=== PATIENT | female | born 1965 | race Caucasian/White ===

== ENCOUNTER 2016-10-09 10:51 | Emergency (ER) | payer OTHER ==
[~2016-10-09] VITALS: Ht 162.5 cm; Wt 89.8 kg
[~2016-10-09 10:51] MED LIST: AUGMENTIN 875875 MG PO; COREG3.125 MG PO; ESTRACE0.5 MG PO; FLEXERIL10 MG PO; FLONASE 0.05% 121 EA NAS; HYCODAN/HYDROMET5 ML PO; HYDROCHLOROTH12.5 MG PO; K + POTASSIUM20 MEQ PO; MOTRIN600 MG PO; MOTRIN800 MG PO; NORVASC5 MG PO; PAXIL10 MG PO; POTASSIUM20 MEQ PO; QUINAPRIL5 MG PO; ROBAXIN500 MG PO; TESSALON PERLE200 MG PO; TRAMADOL HCL50 MG PO; ULTRAM50 MG PO; VICODIN ES 7501 TAB PO; VOLTAREN50 M1 PO; WELLBUTRIN SR150 MG PO; ZITHROMAX250 MG PO
[2016-10-09] MEDS ORDERED: QUINAPRIL20 MG PO (10:59)
[2016-10-09] MEDS ORDERED: VITAMIN B12 1541 TAB PO (11:00)
[2016-10-09] MEDS ORDERED: CYMBALTA60 MG PO (11:00)
[2016-10-09 13:20] VITALS: BP 154/92
== END 2016-10-09 13:19 | disposition home or self-care (01) ==
LOC: ED 10:51
DX: R51 Headache (principal); R42 Dizziness and giddiness; Z88.6 Allergy status to analgesic agent; Z79.899 Other long term (current) drug therapy

== ENCOUNTER 2017-02-19 18:10 | Emergency (ER) | payer OTHER ==
[~2017-02-19] VITALS: Wt 89.8 kg
[~2017-02-19 18:10] MED LIST changes: +CYMBALTA60 MG PO; +QUINAPRIL20 MG PO; +VITAMIN B12 1541 TAB PO
[2017-02-19 18:18] VITALS: BP 140/92
== END 2017-02-19 19:38 | disposition home or self-care (01) ==
LOC: ED 18:10
DX: T22.111A Burn of first degree of right forearm, initial encounter (principal); T22.112A Burn of first degree of left forearm, initial encounter; Z79.899 Other long term (current) drug therapy; X10.2XXA Contact with fats and cooking oils, initial encounter; Y93.G3 Activity, cooking and baking; Y92.89 Other specified places as the place of occurrence of the external cause; Y99.8 Other external cause status

== ENCOUNTER → 2017-04-24 | Outpatient (CLI) | payer OTHER | END | disposition home or self-care (01) | LOC: ORTHO 13:06 | DX: M17.12 Unilateral primary osteoarthritis, left knee (principal) ==

== ENCOUNTER → 2017-05-30 | Outpatient (CLI) | payer OTHER | END | disposition home or self-care (01) | LOC: ORTHO 00:25 | DX: M25.561 Pain in right knee (principal); R10.2 Pelvic and perineal pain; M17.11 Unilateral primary osteoarthritis, right knee ==

== ENCOUNTER → 2017-07-01 | Outpatient (CLI) | payer OTHER | END | disposition home or self-care (01) | LOC: MAMMO 17:18 | DX: Z12.31 Encounter for screening mammogram for malignant neoplasm of breast (principal) ==

== ENCOUNTER 2017-10-01 18:07 | Emergency (ER) | payer OTHER ==
[~2017-10-01] VITALS: Wt 89.8 kg
[~2017-10-01 18:07] MED LIST changes: -ANAPROX DS550 MG PO; -ROBAXIN500 M1 PO
[2017-10-01 18:10] VITALS: BP 135/49
[2017-10-01] MEDS ORDERED: ANAPROX DS550 MG PO (19:02)
[2017-10-01] MEDS ORDERED: ROBAXIN500 M1 PO (19:02)
== END 2017-10-01 19:47 | disposition home or self-care (01) ==
LOC: ED 18:07
DX: M25.512 Pain in left shoulder (principal); Z98.890 Other specified postprocedural states; Z90.710 Acquired absence of both cervix and uterus; Z79.899 Other long term (current) drug therapy; W01.198A Fall on same level from slipping, tripping and stumbling with subsequent striking against other object, initial encounter; Y93.89 Activity, other specified; Y92.89 Other specified places as the place of occurrence of the external cause; Y99.9 Unspecified external cause status

== ENCOUNTER → 2017-10-01 | Outpatient (CLI) | payer SELFPAY ==
[~2017-10-01] MED LIST changes: +ANAPROX DS550 MG PO; +ROBAXIN500 M1 PO
== END | disposition home or self-care (01) ==
LOC: ORTHO 01:24
DX: M79.661 Pain in right lower leg (principal); M79.89 Other specified soft tissue disorders

== ENCOUNTER → 2017-12-30 | Outpatient (CLI) | payer OTHER ==
[~2017-12-30] MED LIST changes: +ANAPROX DS550 MG PO; +ROBAXIN500 M1 PO
[2017-12-30 13:06] LABS: HEMATOCRIT 42.2 % (37.0-47.0); HEMOGLOBIN 13.8 g/dl (12.0-16.0); MEAN CELL VOLUME 83.1 fl (81.0-99.0); MEAN CORPUSCULAR HGB 27.2 pg (27.0-31.0); MEAN CORPUSCULAR HGB CONC 32.7 g/dl (33.0-37.0); MEAN PLATELET VOLUME 11.3 fl (9.6-12.3); RED BLOOD COUNT 5.08 10*6/uL (4.10-5.10); RED CELL DISTRI WIDTH 13.4 % (0-14.5); WHITE BLOOD COUNT 7.8 10*3/uL (4.8-10.8)
[2017-12-30 13:40] LABS: ALBUMIN 3.8 gm/dl (3.1-4.5); ALKALINE PHOSPHATASE 79 U/L (45-117); BUN 10 mg/dl (7-24); CHLORIDE 109 mmol/L (98-107); CHOLESTEROL 173 mg/dL (<200); CREATININE 0.69 mg/dL (0.55-1.02); HDL CHOLESTEROL 43 mg/dl (40-60); LDL CHOLESTEROL 86 mg/dL (9-159); POTASSIUM 3.6 mmol/L (3.5-5.1); SGOT/AST 19 IU/L (3-35); SGPT/ALT 37 U/L (12-78); SODIUM 142 mmol/L (136-145); TOTAL PROTEIN 7.1 gm/dL (6.4-8.2); TRIGLYCERIDES 220 mg/dl (<150); VLDL CHOLESTEROL 44 mg/dL (6-40)
== END | disposition home or self-care (01) ==
LOC: LAB 12:46
PROVIDERS: Family Medicine
DX: E78.00 Pure hypercholesterolemia, unspecified (principal); I10 Essential (primary) hypertension; M19.91 Primary osteoarthritis, unspecified site

== ENCOUNTER 2018-06-14 13:13 | Inpatient (IN) | payer OTHER ==
[~2018-06-14] VITALS: Ht 165.1 cm; Wt 105.2 kg
--- NOTE | ~2018-06-14 | WRIGHTHP ---
[place], [place] PATIENT HISTORY AND PHYSICAL EXAM NAME: ROBERTH LANDRY [facility] #: [id number] UNIT #: [id number] ROOM: 425 DOCTOR: MAGGIE PEREZ MD BIRTHDATE: [birth year] DOS: HISTORY OF PRESENT ILLNESS: This patient is not known to me, 52 years old who presents with dizziness and lightheadedness to the Emergency Room. The patient was evaluated in the ER and workup so far was negative, was admitted with continued dizziness, which was uncontrollable with medications. The patient denies having any chest pains or palpitations, does not have any fever or chills, does have some minimal headaches, again dizzy and lightheaded when she gets up. PAST MEDICAL HISTORY: Significant for: 1. Major depression, mild, recurrent. 2. Benign hypertension. 3. Generalized anxiety disorder. 4. History of a syncope for which she was admitted in 2013. MEDICATIONS: Wellbutrin 150 b.i.d., Coreg 3.125 b.i.d., duloxetine 60 daily, naproxen 500 b.i.d., quinapril 40 daily. SOCIAL HISTORY: Nonsmoker. Does not use any alcohol. 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 She is . She has three children. FAMILY HISTORY: Mother at very young age with cerebral hemorrhage. Father is pretty healthy. PHYSICAL EXAMINATION: VITAL SIGNS: Graphic trend shows a pressure of 146/90, pulse of 66, respirations 18, temperature 98.2. LUNGS: Diminished breath sounds, clear. HEART: Regular. ABDOMEN: Obese, soft. EXTREMITIES: Without any edema. ASSESSMENT AND PLAN: 1. No sinus tenderness noted. Dizziness, lightheadedness. We will check carotid Doppler, MRI of the brain if pending. She may have a viral vestibular neuronitis, which is causing the dizziness. Antivert has been ordered. We will give her a low dose of steroids. 2. Benign hypertension, controlled. Ruled out for myocardial infarction. 3. Anxiety with history of depression, on Wellbutrin, which is to be continued. [place], [place] PATIENT HISTORY AND PHYSICAL EXAM NAME: ROBERTH LANDRY [facility] #: [id number] UNIT #: [id number] ROOM: 425 DOCTOR: MAGGIE PEREZ MD BIRTHDATE: [birth year] MAGGIE PEREZ MD CM:RENYS:PATIENT HISTORY AND PHYSICAL EXAMINATION 1 3 MAGGIE PEREZ MD 06/15/18 0925 interface
--- NOTE | ~2018-06-14 | PR ---
[place], [place] PROGRESS NOTE NAME: ROBERTH LANDRY [facility] #: [id number] UNIT #: [id number] ROOM: 425 DOCTOR: MAGGIE PEREZ MD BIRTHDATE: [birth year] DOS: 06/16/2018 SUBJECTIVE: The patient still has some headaches, occasional dizziness. OBJECTIVE: VITAL SIGNS: Graphic trend shows a pressure 145/81, pulse of 106, respirations 18, temperature 98.6. LUNGS: Diminished breath sounds, clear. HEART: Regular. ABDOMEN: Obese, soft. EXTREMITIES: Without any edema. Ultrasound of the carotid shows no stenosis. DIAGNOSTIC DATA: MRI of the brain shows chronic sinusitis of the maxillary and ethmoid. A small focus of increased T12 density in the right frontal region without any evidence of aneurysm. ASSESSMENT AND PLAN: 1. The patient who presents with dizziness, possibly vestibular neuronitis as well as acute pansinusitis. The patient is placed on steroids and antibiotics. 2. PT will be evaluating her and if she does okay, the plan is to discharge her to home. 3. Benign hypertension, controlled. Echocardiogram was essentially normal with mild left ventricular hypertrophy. The plan is to discharge the patient today to home. MAGGIE PEREZ MD CM:SAEID 0 0 MAGGIE PEREZ MD 06/16/18911 interface
--- NOTE | ~2018-06-14 | EKG ---
[place], [place] ELECTROCARDIOGRAM REPORT NAME: ROBERTH LANDRY UNIT #: [id number] ROOM: 425 DOCTOR: YAMILEX DRAFT REPORT BIRTHDATE: [birth year] [facility] Test Date: 2018-06-14 Test Time: 13:43:49 Pat Name: ROBERTH LANDRY Department: Room: 425 Gender: F Seo Consultant: Nikia Bee : 1965 Requested By: CHRIS BAIN Order Number: [id number] Reading MD: Leo Blanton MD Measurements Intervals [place] Rate: 71 P: 21 MD: 133 QRS: -6 QRSD: 85 T: 14 QT: 401 QTc: 436 Interpretive Statements Sinus rhythm Electronically Signed On 06-15-2018 14:35:19 PST by Leo Blanton MD CM:EKGRPT:ELECTROCARDIOGRAM REPORT [id number] CHRIS PELLETIER DRAFT REPORT CHRIS BAIN DO
--- NOTE | ~2018-06-14 | DS ---
[place], [place] DISCHARGE SUMMARY NAME: ROBERTH LANDRY [facility] #: [id number] UNIT #: [id number] ROOM: 425 DOCTOR: MAGGIE PEREZ MD BIRTHDATE: [birth year] DOS: 06/16/2018 DIAGNOSES: 1. Dizziness from pansinusitis. 2. Benign hypertension with mild concentric left ventricular hypertrophy. 3. Generalized anxiety disorder. 4. Major depression, mild, recurrent. 5. History of syncope workup in 2013. HOSPITAL COURSE: The patient is 52 years old, presents with dizziness and lightheadedness. Please refer to H and P for details. She has some facial redness noticed. Examination was fairly unremarkable. There were no neurological deficits. The patient after admission underwent an MRI of the brain and carotid Doppler. Carotid Doppler was negative; MRI of the brain showed pansinusitis. Also noted was the increased small focus of increased signal in the white matter of the right frontal region, which could be an area of small vessel disease. The patient will have a PT evaluation this morning, if she passes that, the plan is to discharge her to home. Pressures have been fairly controlled, but she appears quite anxious. Echocardiogram showed normal LV function, but with mild concentric LVH. DISCHARGE MEDICATIONS: Augmentin 875 twice a day for 7 days, prednisone tapering dose, Flonase 2 sprays each nostril daily, Coreg 3.125 b.i.d., Wellbutrin 150 b.i.d., duloxetine 60 daily, quinapril 40 daily, and naproxen 500 b.i.d. MAGGIE PEREZ MD CM:DISCHARG 6 8 MAGGIE PEREZ MD 06/16/1830 interface
[2018-06-14 13:14] VITALS: BP 174/91
[2018-06-14 13:47] LABS: BASO # 0.1 10*3/uL (0.0-0.1); BASO % 0.8 % (0.0-1.0); EOS # 0.2 10*3/uL (0.0-0.4); EOS % 2.7 % (1.0-4.0); HEMATOCRIT 41.8 % (37.0-47.0); HEMOGLOBIN 13.8 g/dl (12.0-16.0); LYMPH # 2.5 10*3/uL (1.3-4.4); MEAN CELL VOLUME 83.4 fl (81.0-99.0); MEAN CORPUSCULAR HGB 27.5 pg (27.0-31.0); MEAN PLATELET VOLUME 11.3 fl (9.6-12.3); MONO # 0.5 10*3/uL (0.1-1.0); MONO % 6.2 % (3.0-9.0); NEUT # 4.5 10*3/uL (2.3-7.9); NEUT % 57.9 % (47.0-73.0); PLATELET COUNT AUTOMATED 244 10*3/uL (130-400); RED BLOOD COUNT 5.01 10*6/uL (4.10-5.10); RED CELL DISTRI WIDTH 13.6 % (0-14.5); WHITE BLOOD COUNT 7.8 10*3/uL (4.8-10.8)
[2018-06-14 14:01] LABS: ALBUMIN 3.8 gm/dl (3.1-4.5); ALKALINE PHOSPHATASE 78 U/L (45-117); BUN 14 mg/dl (7-24); CHLORIDE 109 mmol/L (98-107); CREATININE 0.78 mg/dL (0.55-1.02); LIPASE 184 U/L (73-393); POTASSIUM 3.8 mmol/L (3.5-5.1); SGOT/AST 17 IU/L (3-35); SGPT/ALT 34 U/L (12-78); SODIUM 140 mmol/L (136-145)
[2018-06-14 14:06] LABS: ACT PARTIAL THROMBO TIME 27.5 SECONDS (20.8-31.5); INTERNATIONAL NORM RATIO 0.9 (2.0-3.5); TROPONIN I < 0.015 ng/ml (<0.045)
[2018-06-14 14:39] VITALS: BP 162/98
[2018-06-14 14:57] LABS: BILIRUBIN NEGATIVE (NEGATIVE); BLOOD NEGATIVE (NEGATIVE); CLARITY CLEAR (CLEAR); COLOR YELLOW (YELLOW); GLUCOSE NEGATIVE (NEGATIVE); KETONE NEGATIVE (NEGATIVE); LEUKO ESTERASE NEGATIVE (NEGATIVE); NITRITE NEGATIVE (NEGATIVE); PH 6.5 (5.0-9.0); UROBILINOGEN 0.2 E.U./dl (0.2-1.0)
[2018-06-14 15:06] LABS: RBC 0-2 rbc/hpf (0-2); WBC 0-2 wbc/hpf (0-5)
[2018-06-14 16:42] VITALS: BP 147/90
--- NOTE | 2018-06-14 16:43 | NUR ---
PT C/O HEADACHE, DR. BAIN NOTIFIED.
--- NOTE | 2018-06-14 17:20 | NUR ---
TORADOL GIVEN BY TIMOTHY LORENZO
[2018-06-14 18:08] VITALS: BP 121/81
[2018-06-14 18:40] VITALS: BP 125/85
[2018-06-14] MEDS ORDERED: NAPROXEN D/R500 MG PO (18:40)
[2018-06-14] MEDS ORDERED: QUINAPRIL40 MG PO (18:40)
--- NOTE | 2018-06-14 18:53 | NUR ---
CCA 52, admitted to , under the services of MAGGIE Cerda MD with a diagnosis of HEADACHE, NEAR SYNCOPE. Chief complaint is C/O DIZZINESS, HEADACHE SINCE FRIDAY NIGHT. Patient arrived via ambulatory from ER. Monitor applied. Initial assessment completed. Vital signs taken and recorded. MAGGIE CERDA MD notified of admission to the unit. Orders received. See assessment for past medical history, medications and allergies. Patient and/or family oriented to unit. [address] visitation policy reviewed. Clothing/patient valuable form completed. GRECIA MCKNIGHT.
--- NOTE | 2018-06-14 18:57 | NUR ---
Shift chart check completed.24 HR chart check completed.
[2018-06-14 20:00] VITALS: BP 126/71
--- NOTE | 2018-06-14 22:46 | NUR ---
ON ASSESSMENT NO VOICED COMPLAINTS. SHE UNDERSTANDS THAT SHE WILL HAVE ULTRASOUND OF CAROTIDS AND MRI OF HER HEAD TOMORROW. MRI SCREENING FORM COMPLETED AND FAXED TO THE DEPARTMENT. NO DYSRHYTHMIAS. BED IN LOW POSITION WITH WHEELS LOCKED. BATHROOM DOOR OPENED WITH SHOWER LIGHT ON TO PROVIDE SOME LIGHT TO PT. CALL LIGHT IN REACH. SEE ALL APPROPRIATE INTERVENTIONS.
[2018-06-15] VITALS: BP 146/90
--- NOTE | 2018-06-15 00:42 | NUR ---
EYES CLOSED AT PRESENT. NO DYSRHYTHMIAS. NO RESPIRATORY DISTRESS.
[2018-06-15 07:00] LABS: CHOLESTEROL 167 mg/dL (<200); TRIGLYCERIDES 178 mg/dl (<150); VLDL CHOLESTEROL 36 mg/dL (6-40)
[2018-06-15 07:02] LABS: HDL CHOLESTEROL 41 mg/dl (40-60); LDL CHOLESTEROL 90 mg/dL (9-159)
--- NOTE | 2018-06-15 09:00 | NUR ---
Theatre Manager in to talk to patient. Patient states lives at home with her . There are 13 steps in the home. Physician: Dr. Nato Yee [facility]: [facility] Home health services: none Patient's level of ADLs: INDEPENDENT Patient has working utilities: yes DME: none Follow-up physician's appointment after d/c: she prefers to make her own follow up appt after discharge Does patient want to access PORTAL?: no Discharge plan discussed with patient. She lives at home with her . She is independent in her ADLs and ambulation. Discussed home health care services and she denies any home needs at this time. When medically stable she will be discharged to home. KAYCEE VALENCIA
[2018-06-15 12:00] VITALS: BP 131/67
--- NOTE | 2018-06-15 13:44 | NUR ---
MEDICATED WITH NORCO AT 1235 FOR C/O LEE THAT WAS RATED A 6 AND ACHING
[2018-06-15 16:00] VITALS: BP 144/76
[2018-06-15 20:00] VITALS: BP 116/63
--- NOTE | 2018-06-15 20:12 | NUR ---
24HR CHART CHECK COMPLETED.
[2018-06-16] VITALS: BP 145/81
--- NOTE | 2018-06-16 06:09 | NUR ---
PATIENT RESTING IN BED WITH NO S/S OF DISTRESS. NO NEEDS MADE. BED IN LOWEST POSITION, CALL LIGHT IN REACH
[2018-06-16 08:00] VITALS: BP 130/67
[2018-06-16] MEDS ORDERED: AUGMENTIN 875875 MG PO (08:13)
[2018-06-16] MEDS ORDERED: PREDNISONE5 MG PO (08:15)
[2018-06-16] MEDS ORDERED: FLONASE ALLERG9.9 ML NAS (08:15)
--- NOTE | 2018-06-16 08:25 | NUR ---
pt complain of headache and sinus pain, norco given. see mar.
--- NOTE | 2018-06-16 10:29 | NUR ---
PT TO BE D/C HOME TODAY. PT WILL GET [facility] OF FOR TRANSPORTATION. IV REMOVED LEFT ARM, DRESSING APPLIED
--- NOTE | 2018-06-16 11:43 | NUR ---
Discharge instructions reviewed with patient. Patient receptive and verbalizes understanding. Follow-up care understood. Written instructions given to patient. pt aware to brain picker new rx at pharmacy, work slip given. pt has no questions on discharge, waiting for to brain picker for discharge RYLEE FARFAN
--- NOTE | 2018-06-16 12:11 | NUR ---
DISCHARGED BY WHEELCHAIR
== END 2018-06-16 12:11 | disposition home or self-care (01) | DRG 153 ==
LOC: ED 13:13 → 4E 17:33 → EDHOLD 17:33 → 4E 18:10
PROVIDERS: Emergency Medicine; ADMIT Internal Medicine
DX: J01.40 Acute pansinusitis, unspecified (principal); F33.9 Major depressive disorder, recurrent, unspecified; F41.1 Generalized anxiety disorder; I10 Essential (primary) hypertension; H93.3X9 Disorders of unspecified acoustic nerve; R51 Headache; Z72.89 Other problems related to lifestyle; Z82.49 Family history of ischemic heart disease and other diseases of the circulatory system; I51.7 Cardiomegaly

== ENCOUNTER → 2018-08-26 | Outpatient (CLI) | payer OTHER ==
[~2018-08-26] MED LIST changes: +FLONASE ALLERG9.9 ML NAS; +NAPROXEN D/R500 MG PO; +PREDNISONE5 MG PO; +QUINAPRIL40 MG PO
== END | disposition home or self-care (01) ==
LOC: ORTHO 01:36
DX: M17.11 Unilateral primary osteoarthritis, right knee (principal); M25.461 Effusion, right knee; M21.161 Varus deformity, not elsewhere classified, right knee

== ENCOUNTER → 2018-10-20 | Outpatient (CLI) | payer OTHER | END | disposition home or self-care (01) | LOC: MAMMO 16:50 | DX: Z12.31 Encounter for screening mammogram for malignant neoplasm of breast (principal) ==

== ENCOUNTER → 2019-02-15 | Outpatient (CLI) | payer OTHER ==
[~2019-02-15] MED LIST changes: +CEPHALEXIN500 M1 PO
[2019-02-15 15:25] LABS: BASO % 0.5 % (0.0-1.0); EOS # 0.1 10*3/uL (0.0-0.4); EOS % 0.9 % (1.0-4.0); HEMATOCRIT 40.8 % (37.0-47.0); HEMOGLOBIN 13.2 g/dl (12.0-16.0); LYMPH # 2.2 10*3/uL (1.3-4.4); LYMPH % 25.9 % (27.0-41.0); MEAN CELL VOLUME 86.3 fl (81.0-99.0); MEAN CORPUSCULAR HGB 27.9 pg (27.0-31.0); MEAN CORPUSCULAR HGB CONC 32.4 g/dl (33.0-37.0); MEAN PLATELET VOLUME 11.6 fl (9.6-12.3); MONO # 0.5 10*3/uL (0.1-1.0); MONO % 5.4 % (3.0-9.0); NEUT # 5.7 10*3/uL (2.3-7.9); NEUT % 66.9 % (47.0-73.0); PLATELET COUNT AUTOMATED 244 10*3/uL (130-400); RED BLOOD COUNT 4.73 10*6/uL (4.10-5.10); RED CELL DISTRI WIDTH 14.1 % (0-14.5); WHITE BLOOD COUNT 8.5 10*3/uL (4.8-10.8)
[2019-02-15 15:54] LABS: ALBUMIN 3.8 gm/dl (3.1-4.5); BUN 15 mg/dl (7-24); CHLORIDE 105 mmol/L (98-107); CHOLESTEROL 180 mg/dL (<200); CREATININE 0.84 mg/dL (0.55-1.02); POTASSIUM 3.3 mmol/L (3.5-5.1); SGOT/AST 19 IU/L (3-35); SGPT/ALT 34 U/L (12-78); SODIUM 140 mmol/L (136-145); TOTAL PROTEIN 7.1 gm/dL (6.4-8.2); TRIGLYCERIDES 199 mg/dl (<150); VLDL CHOLESTEROL 40 mg/dL (6-40)
[2019-02-15 15:55] LABS: ALKALINE PHOSPHATASE 83 U/L (45-117); HDL CHOLESTEROL 48 mg/dl (40-60); LDL CHOLESTEROL 92 mg/dL (9-159)
[2019-02-15 16:13] LABS: VITAMIN D, 25-HYDROXY 18.2 ng/mL (30-100)
== END | disposition home or self-care (01) ==
LOC: LAB 14:41
PROVIDERS: Family Medicine
DX: E55.9 Vitamin D deficiency, unspecified (principal); M79.10 Myalgia, unspecified site; E74.00 Glycogen storage disease, unspecified; F41.1 Generalized anxiety disorder; I10 Essential (primary) hypertension

== ENCOUNTER → 2019-03-05 | Outpatient (CLI) | payer OTHER | END | disposition home or self-care (01) | LOC: LAB 13:51 | DX: E04.9 Nontoxic goiter, unspecified (principal); E66.9 Obesity, unspecified; R53.83 Other fatigue ==

== ENCOUNTER 2019-03-16 16:59 | Emergency (ER) | payer SELFPAY ==
[~2019-03-16] VITALS: Ht 162.5 cm; Wt 89.8 kg
[~2019-03-16 16:59] MED LIST changes: -CEPHALEXIN500 M1 PO
[2019-03-16 17:00] VITALS: BP 116/89
[2019-03-16 17:57] LABS: INTERNATIONAL NORM RATIO 0.9 (2.0-3.5)
[2019-03-16 18:05] LABS: BASO % 0.3 % (0.0-1.0); EOS # 0.1 10*3/uL (0.0-0.4); EOS % 1.5 % (1.0-4.0); HEMATOCRIT 39.5 % (37.0-47.0); HEMOGLOBIN 12.8 g/dl (12.0-16.0); LYMPH # 1.4 10*3/uL (1.3-4.4); LYMPH % 23.9 % (27.0-41.0); MEAN CELL VOLUME 86.8 fl (81.0-99.0); MEAN CORPUSCULAR HGB 28.1 pg (27.0-31.0); MEAN CORPUSCULAR HGB CONC 32.4 g/dl (33.0-37.0); MEAN PLATELET VOLUME 11.7 fl (9.6-12.3); MONO # 0.5 10*3/uL (0.1-1.0); MONO % 8.3 % (3.0-9.0); NEUT # 3.8 10*3/uL (2.3-7.9); NEUT % 65.7 % (47.0-73.0); PLATELET COUNT AUTOMATED 206 10*3/uL (130-400); RED BLOOD COUNT 4.55 10*6/uL (4.10-5.10); RED CELL DISTRI WIDTH 13.8 % (0-14.5); WHITE BLOOD COUNT 5.8 10*3/uL (4.8-10.8)
[2019-03-16 18:11] LABS: ALBUMIN 3.7 gm/dl (3.1-4.5); ALKALINE PHOSPHATASE 76 U/L (45-117); BUN 15 mg/dl (7-24); CHLORIDE 106 mmol/L (98-107); CREATININE 0.89 mg/dL (0.55-1.02); POTASSIUM 3.2 mmol/L (3.5-5.1); SGOT/AST 15 IU/L (3-35); SGPT/ALT 34 U/L (12-78); SODIUM 139 mmol/L (136-145); TOTAL PROTEIN 6.9 gm/dL (6.4-8.2)
[2019-03-16] MEDS ORDERED: CEPHALEXIN500 M1 PO (18:32)
== END 2019-03-16 18:57 | disposition home or self-care (01) ==
LOC: ED 16:59
PROVIDERS: Nurse Practitioner Family
DX: L03.116 Cellulitis of left lower limb (principal); L03.115 Cellulitis of right lower limb; G43.909 Migraine, unspecified, not intractable, without status migrainosus; Z79.899 Other long term (current) drug therapy

== ENCOUNTER → 2019-11-15 | Outpatient (CLI) | payer OTHER ==
[~2019-11-15] MED LIST changes: +CEPHALEXIN500 M1 PO
[2019-11-15 17:54] LABS: HEMATOCRIT 43.2 % (37.0-47.0); MEAN CELL VOLUME 86.1 fl (81.0-99.0); MEAN CORPUSCULAR HGB 27.5 pg (27.0-31.0); MEAN CORPUSCULAR HGB CONC 31.9 g/dl (33.0-37.0); MEAN PLATELET VOLUME 11.6 fl (9.6-12.3); RED BLOOD COUNT 5.02 10*6/uL (4.10-5.10); RED CELL DISTRI WIDTH 14.7 % (0-14.5)
[2019-11-15 18:14] LABS: ALBUMIN 3.8 gm/dl (3.1-4.5); ALKALINE PHOSPHATASE 89 U/L (45-117); BUN 16 mg/dl (7-24); CHLORIDE 109 mmol/L (98-107); CHOLESTEROL 169 mg/dL (<200); CREATININE 0.98 mg/dL (0.55-1.02); HDL CHOLESTEROL 42 mg/dl (40-60); LDL CHOLESTEROL 82 mg/dL (9-159); POTASSIUM 3.4 mmol/L (3.5-5.1); SGOT/AST 22 IU/L (3-35); SGPT/ALT 36 U/L (12-78); SODIUM 141 mmol/L (136-145); TOTAL PROTEIN 7.5 gm/dL (6.4-8.2); TRIGLYCERIDES 227 mg/dl (<150); VLDL CHOLESTEROL 45 mg/dL (6-40)
== END | disposition home or self-care (01) ==
LOC: LAB 17:09
PROVIDERS: Family Medicine
DX: I10 Essential (primary) hypertension (principal); E55.9 Vitamin D deficiency, unspecified; R60.0 Localized edema; F41.1 Generalized anxiety disorder; E74.00 Glycogen storage disease, unspecified

== ENCOUNTER → 2019-12-30 | Outpatient (CLI) | payer OTHER ==
[2019-12-30 15:50] LABS: CHLORIDE 109 mmol/L (98-107); POTASSIUM 3.4 mmol/L (3.5-5.1); SODIUM 141 mmol/L (136-145)
[2019-12-30 15:56] LABS: ALBUMIN 3.5 gm/dl (3.1-4.5); ALKALINE PHOSPHATASE 76 U/L (45-117); BUN 11 mg/dl (7-24); CREATININE 0.73 mg/dL (0.55-1.02); SGOT/AST 20 IU/L (3-35); SGPT/ALT 32 U/L (12-78); TOTAL PROTEIN 7.1 gm/dL (6.4-8.2)
== END | disposition home or self-care (01) ==
LOC: LAB 14:36
PROVIDERS: Family Medicine
DX: E87.5 Hyperkalemia (principal)

== ENCOUNTER → 2020-02-22 | Outpatient (CLI) | payer OTHER | END | disposition home or self-care (01) | LOC: COVID19 00:24 | PROVIDERS: ATTEND Family Medicine | DX: Z20.828 Contact with and (suspected) exposure to other viral communicable diseases (principal) ==

== ENCOUNTER → 2020-07-18 | Outpatient (CLI) | payer OTHER ==
[2020-07-18 10:45] LABS: HEMATOCRIT 44.1 % (37.0-47.0); MEAN CELL VOLUME 85.5 fl (81.0-99.0); MEAN CORPUSCULAR HGB 25.8 pg (27.0-31.0); MEAN CORPUSCULAR HGB CONC 30.2 g/dl (33.0-37.0); MEAN PLATELET VOLUME 11.3 fl (9.6-12.3); RED BLOOD COUNT 5.16 10*6/uL (4.10-5.10); RED CELL DISTRI WIDTH 14.1 % (0-14.5)
[2020-07-18 11:16] LABS: ALBUMIN 3.6 gm/dl (3.1-4.5); ALKALINE PHOSPHATASE 96 U/L (45-117); BUN 15 mg/dl (7-24); CHLORIDE 110 mmol/L (98-107); CHOLESTEROL 190 mg/dL (<200); CREATININE 0.81 mg/dL (0.55-1.02); HDL CHOLESTEROL 44 mg/dl (40-60); LDL CHOLESTEROL 110 mg/dL (9-159); POTASSIUM 4.2 mmol/L (3.5-5.1); SGOT/AST 16 IU/L (3-35); SGPT/ALT 42 U/L (12-78); SODIUM 142 mmol/L (136-145); TOTAL PROTEIN 7.1 gm/dL (6.4-8.2); TRIGLYCERIDES 178 mg/dl (<150); VLDL CHOLESTEROL 36 mg/dL (6-40)
[2020-07-18 11:58] LABS: VITAMIN D, 25-HYDROXY 23.5 ng/mL (30-100)
== END | disposition home or self-care (01) ==
LOC: LAB 10:24
PROVIDERS: ATTEND Family Medicine
DX: I10 Essential (primary) hypertension (principal); E55.9 Vitamin D deficiency, unspecified; R53.83 Other fatigue; E78.00 Pure hypercholesterolemia, unspecified; F41.1 Generalized anxiety disorder

== ENCOUNTER → 2020-08-22 | Outpatient (CLI) | payer OTHER ==
[2020-08-22 16:56] LABS: FREE T4 1.01 ng/dl (0.76-1.46)
[2020-08-22 17:00] LABS: THYROID STIM HORMONE (HS) 1.26 uIU/ml (0.358-4.75)
== END | disposition home or self-care (01) ==
LOC: MAMMO 08-17 11:00 → LAB 15:58 → MAMMO 16:30
PROVIDERS: ATTEND Family Medicine
DX: Z12.31 Encounter for screening mammogram for malignant neoplasm of breast (principal); R53.83 Other fatigue; R63.5 Abnormal weight gain

== ENCOUNTER → 2020-08-31 | Outpatient (CLI) | payer OTHER ==
[2020-08-31 10:40] LABS: BASO # 0.1 10*3/uL (0.0-0.1); BASO % 0.5 % (0.0-1.0); EOS # 0.3 10*3/uL (0.0-0.4); EOS % 3.4 % (1.0-4.0); HEMATOCRIT 43.7 % (37.0-47.0); LYMPH # 2.2 10*3/uL (1.3-4.4); MEAN CELL VOLUME 84.9 fl (81.0-99.0); MEAN CORPUSCULAR HGB 26.4 pg (27.0-31.0); MEAN CORPUSCULAR HGB CONC 31.1 g/dl (33.0-37.0); MONO # 0.5 10*3/uL (0.1-1.0); NEUT # 6.1 10*3/uL (2.3-7.9); NEUT % 66.6 % (47.0-73.0); PLATELET COUNT AUTOMATED 270 10*3/uL (130-400); RED BLOOD COUNT 5.15 10*6/uL (4.10-5.10); RED CELL DISTRI WIDTH 14.6 % (0-14.5); WHITE BLOOD COUNT 9.2 10*3/uL (4.8-10.8)
[2020-08-31 10:51] LABS: ACT PARTIAL THROMBO TIME 28.7 SECONDS (20.0-32.1); INTERNATIONAL NORM RATIO 0.9 (2.0-3.5)
[2020-08-31 11:02] LABS: BILIRUBIN Negative (Negative); BLOOD Negative (Negative); CLARITY Clear (Clear); COLOR Yellow (Yellow); GLUCOSE Negative (Negative); KETONE Negative (Negative); LEUKO ESTERASE 1+ (Negative); NITRITE Positive (Negative); PH 5.5 (4.5-8.0); SPECIFIC GRAVITY 1.015 (1.001-1.030); UROBILINOGEN 0.2 E.U./dl (0.0-1.0)
[2020-08-31 11:16] LABS: ALBUMIN 3.6 gm/dl (3.1-4.5); ALKALINE PHOSPHATASE 96 U/L (45-117); BUN 12 mg/dl (7-24); CHLORIDE 108 mmol/L (98-107); CREATININE 0.85 mg/dL (0.55-1.02); POTASSIUM 3.6 mmol/L (3.5-5.1); SGOT/AST 20 IU/L (3-35); SGPT/ALT 48 U/L (12-78); SODIUM 141 mmol/L (136-145); TOTAL PROTEIN 7.6 gm/dL (6.4-8.2)
[2020-08-31 11:52] LABS: BACTERIA 4+; WBC 21-30 wbc/hpf (0-5)
== END | disposition home or self-care (01) ==
LOC: LAB 09:49
PROVIDERS: ATTEND Orthopaedic Surgery
DX: Z01.818 Encounter for other preprocedural examination (principal); R53.83 Other fatigue; R06.02 Shortness of breath; I10 Essential (primary) hypertension; M19.90 Unspecified osteoarthritis, unspecified site; M79.7 Fibromyalgia; Z79.899 Other long term (current) drug therapy; Z13.220 Encounter for screening for lipoid disorders

== ENCOUNTER → 2020-09-06 | Outpatient (CLI) | payer OTHER | END | disposition home or self-care (01) | LOC: MAMMO 13:17 | PROVIDERS: ATTEND Family Medicine | DX: R92.8 Other abnormal and inconclusive findings on diagnostic imaging of breast (principal) ==

== ENCOUNTER → 2020-10-27 | Outpatient (CLI) | payer OTHER | END | disposition home or self-care (01) | LOC: US 11:14 | PROVIDERS: ATTEND Orthopaedic Surgery | DX: R22.41 Localized swelling, mass and lump, right lower limb (principal) ==

== ENCOUNTER → 2020-12-27 | Outpatient (CLI) | payer OTHER ==
[2020-12-28 16:08] LABS: MUMPS ANTIBODIES, IGG 59.3 AU/mL (Immune >10.9); RUBEOLA AB IGG <13.5 AU/mL (Immune >16.4); VARICELLA-ZOSTER IGG 255 index (Immune >165)
== END | disposition home or self-care (01) ==
LOC: LAB 16:22
PROVIDERS: ATTEND Family Medicine
DX: Z02.1 Encounter for pre-employment examination (principal)

== ENCOUNTER → 2021-02-26 | Outpatient (CLI) | payer OTHER ==
[2021-02-26 15:21] LABS: HEMATOCRIT 38.7 % (37.0-47.0); MEAN CORPUSCULAR HGB 26.2 pg (27.0-31.0); MEAN CORPUSCULAR HGB CONC 32.3 g/dl (33.0-37.0); MEAN PLATELET VOLUME 11.8 fl (9.6-12.3); RED BLOOD COUNT 4.78 10*6/uL (4.10-5.10); RED CELL DISTRI WIDTH 14.6 % (0-14.5); WHITE BLOOD COUNT 7.1 10*3/uL (4.8-10.8)
[2021-02-26 16:04] LABS: ALBUMIN 3.7 gm/dl (3.1-4.5); ALKALINE PHOSPHATASE 95 U/L (45-117); BUN 13 mg/dl (7-24); CHLORIDE 107 mmol/L (98-107); CREATININE 0.82 mg/dL (0.55-1.02); POTASSIUM 3.4 mmol/L (3.5-5.1); SGOT/AST 15 IU/L (3-35); SGPT/ALT 35 U/L (12-78); SODIUM 140 mmol/L (136-145)
== END | disposition home or self-care (01) ==
LOC: LAB 14:52
PROVIDERS: ATTEND Family Medicine
DX: R06.02 Shortness of breath (principal); E74.00 Glycogen storage disease, unspecified; R60.0 Localized edema; F41.1 Generalized anxiety disorder

== ENCOUNTER → 2021-07-09 | Outpatient (CLI) | payer OTHER | END | disposition home or self-care (01) | LOC: MRI 13:51 | PROVIDERS: ATTEND Chiropractor Orthopedic | DX: S63.682A Other sprain of left thumb, initial encounter (principal); X58.XXXA Exposure to other specified factors, initial encounter; Y93.89 Activity, other specified; Y92.89 Other specified places as the place of occurrence of the external cause; Y99.8 Other external cause status ==

== ENCOUNTER → 2021-08-25 | Outpatient (CLI) | payer OTHER ==
[2021-08-25 10:03] LABS: HEMATOCRIT 43.1 % (37.0-47.0); MEAN CELL VOLUME 82.3 fl (81.0-99.0); MEAN CORPUSCULAR HGB 26.1 pg (27.0-31.0); MEAN CORPUSCULAR HGB CONC 31.8 g/dl (33.0-37.0); MEAN PLATELET VOLUME 10.8 fl (9.6-12.3); RED BLOOD COUNT 5.24 10*6/uL (4.10-5.10); RED CELL DISTRI WIDTH 14.4 % (0-14.5); WHITE BLOOD COUNT 7.1 10*3/uL (4.8-10.8)
[2021-08-25 10:22] LABS: ALKALINE PHOSPHATASE 90 U/L (45-117); BUN 13 mg/dl (7-24); CHLORIDE 110 mmol/L (98-107); CHOLESTEROL 181 mg/dL (<200); CPK 157 U/L (26-192); CREATININE 0.76 mg/dL (0.55-1.02); LDL CHOLESTEROL 104 mg/dL (9-159); POTASSIUM 4.1 mmol/L (3.5-5.1); SGOT/AST 19 IU/L (3-35); SGPT/ALT 28 U/L (12-78); SODIUM 142 mmol/L (136-145); TOTAL PROTEIN 7.2 gm/dL (6.4-8.2); TRIGLYCERIDES 166 mg/dl (<150)
[2021-08-25 11:47] LABS: VITAMIN D, 25-HYDROXY 14.7 ng/mL (30-100)
== END | disposition home or self-care (01) ==
LOC: LAB 09:39
PROVIDERS: ATTEND Family Medicine
DX: I10 Essential (primary) hypertension (principal); K21.9 Gastro-esophageal reflux disease without esophagitis; E74.9 Disorder of carbohydrate metabolism, unspecified; E55.9 Vitamin D deficiency, unspecified; R53.83 Other fatigue

== ENCOUNTER → 2022-05-10 | Outpatient (CLI) | payer OTHER ==
[2022-05-10 12:07] LABS: HEMATOCRIT 43.9 % (37.0-47.0); MEAN CELL VOLUME 85.6 fl (81.0-99.0); MEAN CORPUSCULAR HGB 27.3 pg (27.0-31.0); MEAN CORPUSCULAR HGB CONC 31.9 g/dl (33.0-37.0); RED BLOOD COUNT 5.13 10*6/uL (4.10-5.10); RED CELL DISTRI WIDTH 13.6 % (0-14.5); WHITE BLOOD COUNT 6.6 10*3/uL (4.8-10.8)
[2022-05-10 12:26] LABS: ALKALINE PHOSPHATASE 84 U/L (46-116); BUN 13 mg/dl (9-23); CHLORIDE 104 mmol/L (98-107); CHOLESTEROL 176 mg/dL (<200); CREATININE 0.76 mg/dL (0.55-1.02); LDL CHOLESTEROL 100 mg/dL (9-159); SGPT/ALT 26 U/L (10-49); SODIUM 137 mmol/L (136-145); TOTAL PROTEIN 7.2 gm/dL (6.0-8.0); TRIGLYCERIDES 167 mg/dl (<150)
[2022-05-10 14:21] LABS: VITAMIN D, 25-HYDROXY 24.5 ng/mL (30-100)
== END | disposition home or self-care (01) ==
LOC: LAB 11:37
PROVIDERS: ATTEND Family Medicine
DX: J45.909 Unspecified asthma, uncomplicated (principal); E74.9 Disorder of carbohydrate metabolism, unspecified; E55.9 Vitamin D deficiency, unspecified; R53.83 Other fatigue; R63.5 Abnormal weight gain

== ENCOUNTER → 2022-08-13 | Outpatient (CLI) | payer OTHER | END | disposition home or self-care (01) | LOC: MAMMO 00:27 | PROVIDERS: ATTEND Family Medicine | DX: Z12.31 Encounter for screening mammogram for malignant neoplasm of breast (principal); R92.1 Mammographic calcification found on diagnostic imaging of breast ==

== ENCOUNTER → 2023-01-02 | Outpatient (CLI) | payer OTHER | END | disposition home or self-care (01) | LOC: CT 14:00 | PROVIDERS: ATTEND Orthopaedic Surgery | DX: S63.91XA Sprain of unspecified part of right wrist and hand, initial encounter (principal); M25.821 Other specified joint disorders, right elbow; M25.421 Effusion, right elbow; M79.89 Other specified soft tissue disorders; X58.XXXA Exposure to other specified factors, initial encounter; Y93.89 Activity, other specified; Y92.89 Other specified places as the place of occurrence of the external cause; Y99.8 Other external cause status ==

== ENCOUNTER → 2023-04-30 | Outpatient (CLI) | payer OTHER ==
[2023-04-30 14:54] LABS: HEMATOCRIT 41.8 % (37.0-47.0); MEAN CELL VOLUME 83.8 fl (81.0-99.0); MEAN CORPUSCULAR HGB 27.7 pg (27.0-31.0); MEAN PLATELET VOLUME 10.5 fl (9.6-12.3); RED BLOOD COUNT 4.99 10*6/uL (4.10-5.10); RED CELL DISTRI WIDTH 14.2 % (0-14.5); WHITE BLOOD COUNT 7.3 10*3/uL (4.8-10.8)
[2023-04-30 15:19] LABS: ALKALINE PHOSPHATASE 87 U/L (46-116); BUN 9 mg/dl (9-23); CHLORIDE 106 mmol/L (98-107); CHOLESTEROL 194 mg/dL (<200); CPK 146 U/L (34-171); LDL CHOLESTEROL 100 mg/dL (9-159); POTASSIUM 3.7 mmol/L (3.4-5.1); SGPT/ALT 24 U/L (5-49); TRIGLYCERIDES 254 mg/dl (<150)
[2023-04-30 15:22] LABS: VITAMIN D, 25-HYDROXY 29.5 ng/mL (30-100)
== END | disposition home or self-care (01) ==
LOC: LAB 14:40
PROVIDERS: ATTEND Family Medicine
DX: I10 Essential (primary) hypertension (principal); E78.00 Pure hypercholesterolemia, unspecified; R53.83 Other fatigue; K21.9 Gastro-esophageal reflux disease without esophagitis; E74.9 Disorder of carbohydrate metabolism, unspecified; E55.9 Vitamin D deficiency, unspecified

== ENCOUNTER → 2023-06-03 | Outpatient (CLI) | payer OTHER | END | disposition home or self-care (01) | LOC: RAD 09:55 | PROVIDERS: ATTEND Family Medicine | DX: R07.9 Chest pain, unspecified (principal) ==

== ENCOUNTER → 2023-09-25 | Outpatient (CLI) | payer OTHER | END | disposition home or self-care (01) | LOC: MAMMO 08-26 16:30 | PROVIDERS: ATTEND Family Medicine | DX: Z12.31 Encounter for screening mammogram for malignant neoplasm of breast (principal) ==

== ENCOUNTER → 2023-10-30 | Outpatient (CLI) | payer OTHER ==
[2023-10-30 15:06] LABS: HEMATOCRIT 41.8 % (37.0-47.0); MEAN CELL VOLUME 85.8 fl (81.0-99.0); MEAN CORPUSCULAR HGB 26.9 pg (27.0-31.0); MEAN CORPUSCULAR HGB CONC 31.3 g/dl (33.0-37.0); MEAN PLATELET VOLUME 10.9 fl (9.6-12.3); RED BLOOD COUNT 4.87 10*6/uL (4.10-5.10); RED CELL DISTRI WIDTH 14.6 % (0-14.5); WHITE BLOOD COUNT 9.1 10*3/uL (4.8-10.8)
[2023-10-30 16:00] LABS: ALKALINE PHOSPHATASE 97 U/L (46-116); BUN 13 mg/dl (9-23); CHLORIDE 108 mmol/L (98-107); CHOLESTEROL 170 mg/dL (<200); LDL CHOLESTEROL 73 mg/dL (9-159); POTASSIUM 3.9 mmol/L (3.4-5.1); SGPT/ALT 25 U/L (5-49); TOTAL PROTEIN 6.9 gm/dL (6.0-8.0); TRIGLYCERIDES 298 mg/dl (<150)
== END | disposition home or self-care (01) ==
LOC: LAB 14:45
PROVIDERS: ATTEND Family Medicine
DX: E55.9 Vitamin D deficiency, unspecified (principal); E78.00 Pure hypercholesterolemia, unspecified; E74.9 Disorder of carbohydrate metabolism, unspecified; J44.9 Chronic obstructive pulmonary disease, unspecified; F41.9 Anxiety disorder, unspecified; I25.10 Atherosclerotic heart disease of native coronary artery without angina pectoris

== ENCOUNTER → 2024-10-20 | Outpatient (CLI) | payer OTHER | END | disposition home or self-care (01) | LOC: MAMMO 10-13 09:30 | PROVIDERS: ATTEND Family Medicine | DX: Z12.31 Encounter for screening mammogram for malignant neoplasm of breast (principal); R92.313 Mammographic fatty tissue density, bilateral breasts ==

== ENCOUNTER → 2025-02-04 | Outpatient (CLI) | payer OTHER ==
[2025-02-04 16:57] LABS: BASO # 0.0 10*3/uL (0.0-0.1); BASO % 0.6 % (0.0-1.0); EOS # 0.1 10*3/uL (0.0-0.4); EOS % 1.7 % (1.0-4.0); MEAN CELL VOLUME 85.3 fl (81.0-99.0); MEAN CORPUSCULAR HGB 27.2 pg (27.0-31.0); MEAN PLATELET VOLUME 10.9 fl (9.6-12.3); MONO # 0.4 10*3/uL (0.1-1.0); MONO % 5.6 % (3.0-9.0); NEUT # 4.4 10*3/uL (2.3-7.9); NEUT % 61.3 % (47.0-73.0); NUCLEATED RED BLOOD CELL 0.0 % (0.0-0.0); NUCLEATED RED BLOOD CELL 0.0 10*3/uL (0.0-0.0); PLATELET COUNT AUTOMATED 221 10*3/uL (130-400); RED CELL DISTRI WIDTH 14.0 % (0-14.5)
[2025-02-04 17:17] LABS: BUN 17 mg/dl (9-23); LDL CHOLESTEROL 91 mg/dL (9-159); SGPT/ALT 37 U/L (5-49)
[2025-02-04 17:20] LABS: VITAMIN D, 25-HYDROXY 49.0 ng/mL (30-100)
== END | disposition home or self-care (01) ==
LOC: LAB 16:33
PROVIDERS: ATTEND Family Medicine
DX: E78.00 Pure hypercholesterolemia, unspecified (principal); E74.9 Disorder of carbohydrate metabolism, unspecified; E55.9 Vitamin D deficiency, unspecified; R53.83 Other fatigue; Z79.899 Other long term (current) drug therapy

== ENCOUNTER → 2025-03-15 | Outpatient (CLI) | payer OTHER | END | disposition home or self-care (01) | LOC: RAD 13:47 | PROVIDERS: ATTEND Family Medicine | DX: M47.816 Spondylosis without myelopathy or radiculopathy, lumbar region (principal); M54.9 Dorsalgia, unspecified ==